=== PATIENT | female | born 1995 | race Caucasian/White ===

== ENCOUNTER 2023-06-25 17:40 | Emergency (ER) | payer BC ==
[2023-06-25 18:05] VITALS: BP 139/96; PULSE 94; RESP 18; TEMP 98.2; BMI 28.3
== END 2023-06-25 18:45 | disposition home or self-care (01) ==
LOC: FER 17:40
DX: R11.2 Nausea with vomiting, unspecified (principal); R42 Dizziness and giddiness; Z20.822 Contact with and (suspected) exposure to COVID-19
CPT/HCPCS: 0241U-QW; 81025; 99283-25